=== PATIENT | female | born 1945 | race Caucasian/White ===

== ENCOUNTER 2020-12-17 14:03 | Inpatient (IN) | payer OTHER ==
[~2020-12-17] VITALS: Ht 167.6 cm; Wt 55.8 kg
[2020-12-17 14:45] LABS: HEMOGLOBIN 11.2 gm/dl (12.3-15.3); RED BLOOD COUNT 3.73 M/UL (4.00-5.10); WHITE BLOOD COUNT 5.2 K/UL (4.5-11.0)
[2020-12-17 15:15] LABS: BUN/CREATININE RATIO 25 (0-10)
[2020-12-17] MEDS ORDERED: OXYCODONE-ACET1 EACH PO (20:10)
[2020-12-17] MEDS ORDERED: HYDROCODON-ACE1 EAC2 PO (20:11)
[2020-12-17] MEDS ORDERED: GABAPENTIN600 MG PO (20:11)
[2020-12-17] MEDS ORDERED: DIAZEPAM2 MG PO (20:12)
[2020-12-17] MEDS ORDERED: PREDNISONE 50 M50 MG PO (20:12)
[2020-12-17] MEDS ORDERED: ROPINIROLE HCL2 MG PO (20:13)
[2020-12-17] MEDS ORDERED: LOSARTAN POTASS25 MG PO (20:13)
[2020-12-17] MEDS ORDERED: METOPROLOL TART25 MG PO (20:15)
[2020-12-17] MEDS ORDERED: SINGULAIR10 MG PO (20:15)
[2020-12-17] MEDS ORDERED: ADULT LOW DOSE81 MG PO (20:16)
[2020-12-17] MEDS ORDERED: ADVAIR HFA 230/1 INH INH (20:17)
[2020-12-17] MEDS ORDERED: IPRAT-ALBUT 0.5-3 ML INH (20:19)
[2020-12-17] MEDS ORDERED: SPIRIVA RESPIMAT4 GM INH (20:19)
[2020-12-18 06:25] LABS: HEMOGLOBIN 10.6 gm/dl (12.3-15.3); RED BLOOD COUNT 3.63 M/UL (4.00-5.10); WHITE BLOOD COUNT 4.1 K/UL (4.5-11.0)
[2020-12-18 18:44] LABS: HEMOGLOBIN 9.5 gm/dl (12.3-15.3)
[2020-12-18 18:49] LABS: RED BLOOD COUNT 3.24 M/UL (4.00-5.10); WHITE BLOOD COUNT 7.2 K/UL (4.5-11.0)
[2020-12-19 05:51] LABS: HEMOGLOBIN 9.5 gm/dl (12.3-15.3); RED BLOOD COUNT 3.18 M/UL (4.00-5.10); WHITE BLOOD COUNT 5.7 K/UL (4.5-11.0)
[2020-12-20 06:49] LABS: HEMOGLOBIN 8.5 gm/dl (12.3-15.3); RED BLOOD COUNT 2.91 M/UL (4.00-5.10)
[2020-12-20 06:54] LABS: WHITE BLOOD COUNT 4.1 K/UL (4.5-11.0)
[2020-12-21 06:23] LABS: HEMOGLOBIN 8.2 gm/dl (12.3-15.3); RED BLOOD COUNT 2.79 M/UL (4.00-5.10); WHITE BLOOD COUNT 3.5 K/UL (4.5-11.0)
[2020-12-22 08:04] LABS: HEMOGLOBIN 7.2 gm/dl (12.3-15.3); WHITE BLOOD COUNT 3.7 K/UL (4.5-11.0)
[2020-12-22 08:14] LABS: RED BLOOD COUNT 2.49 M/UL (4.00-5.10)
--- NOTE | 2020-12-22 13:56 | NUR ---
spoken with dr. lincoln reported of patients temp. received order to give tylenol as ordered
[2020-12-22 19:53] LABS: HEMOGLOBIN 8.7 gm/dl (12.3-15.3); WHITE BLOOD COUNT 3.7 K/UL (4.5-11.0)
[2020-12-22 19:58] LABS: RED BLOOD COUNT 2.91 M/UL (4.00-5.10)
[2020-12-23 04:35] LABS: HEMOGLOBIN 9.1 gm/dl (12.3-15.3); WHITE BLOOD COUNT 3.6 K/UL (4.5-11.0)
[2020-12-23] MEDS ORDERED: ENOXAPARIN40 MG/0.4 SC (08:44)
--- NOTE | 2020-12-23 11:35 | NUR ---
informed dr. grimm of patient discharge today and acknowledged. verbalize ok for patient to go home.
--- NOTE | 2020-12-23 11:36 | NUR ---
report given to admitting nurse- nida of [facility].
--- NOTE | 2020-12-23 13:22 | NUR ---
daughter refused to wait for portable oxygen. stated we live close to hospital. informed of importance of oxygen with travel. verb understanding. patient agreeable with the daughter not to wait for portable oxygen
== END 2020-12-23 13:09 | disposition home health service (06) | DRG 470 ==
LOC: ER1 14:03 → CDU 17:13 → M/S 17:13
PROVIDERS: Internal Medicine; Nurse Practitioner; Orthopaedic Surgery; Physician Assistant; ADMIT Internal Medicine
PROC: 0SR90JA Replacement of Right Hip Joint with Synthetic Substitute, Uncemented, Open Approach (ICD-10-PCS; 2020-12-18)
PROC: B24BZZ4 Ultrasonography of Heart with Aorta, Transesophageal (ICD-10-PCS; 2020-12-18)
PROC: 30233N1 Transfusion of Nonautologous Red Blood Cells into Peripheral Vein, Percutaneous Approach (ICD-10-PCS; principal; 2020-12-22)
DX: T84.020A Dislocation of internal right hip prosthesis, initial encounter (principal); D62 Acute posthemorrhagic anemia; C34.90 Malignant neoplasm of unspecified part of unspecified bronchus or lung; N30.00 Acute cystitis without hematuria; Z20.822 Contact with and (suspected) exposure to COVID-19; J44.9 Chronic obstructive pulmonary disease, unspecified; I10 Essential (primary) hypertension; B96.5 Pseudomonas (aeruginosa) (mallei) (pseudomallei) as the cause of diseases classified elsewhere; W18.30XA Fall on same level, unspecified, initial encounter; I08.1 Rheumatic disorders of both mitral and tricuspid valves; M24.551 Contracture, right hip; Y83.8 Other surgical procedures as the cause of abnormal reaction of the patient, or of later complication, without mention of misadventure at the time of the procedure; Z96.0 Presence of urogenital implants; F17.210 Nicotine dependence, cigarettes, uncomplicated; Z79.82 Long term (current) use of aspirin; Z79.01 Long term (current) use of anticoagulants; Z85.3 Personal history of malignant neoplasm of breast; Z90.12 Acquired absence of left breast and nipple; Z96.82 Presence of neurostimulator; Z90.710 Acquired absence of both cervix and uterus; Z90.49 Acquired absence of other specified parts of digestive tract
CPT/HCPCS: ECHO; 36415; 36430; 71045; 71046; 72170; 73501; 73502; 80048; 80053; 81001; 82550; 82553; 83036; 83540; 83550; 83735; 83874; 83880; 84484; 85025; 85027; 85652; 86140; 86850; 86900; 86901; 86920; 87040; 87070; 87077; 87086; 87186; 87205; 93005; 93306; 94640; 94664; 94760; 97110; 97110-GP-CQ; 97116; 97116-GP-CQ; 97161; 97166; 97530; 97530-GP-CQ; 99285; A6212; C1713; C1776; J0690; J1100; J1650; J2001; J2270; J2370; J2405; J2543; J2795; J3010; J3370; J7040; J7050; J7120; P9016; P9045; U0002

== ENCOUNTER 2021-01-08 14:42 | Inpatient (IN) | payer OTHER ==
[~2021-01-08] VITALS: Ht 167.6 cm; Wt 55.8 kg
[~2021-01-08 14:42] MED LIST: ADULT LOW DOSE81 MG PO; ADVAIR HFA 230/1 INH INH; DIAZEPAM2 MG PO; ENOXAPARIN40 MG/0.4 SC; GABAPENTIN600 MG PO; HYDROCODON-ACE1 EAC2 PO; IPRAT-ALBUT 0.5-3 ML INH; LOSARTAN POTASS25 MG PO; METOPROLOL TART25 MG PO; OXYCODONE-ACET1 EACH PO; PREDNISONE 50 M50 MG PO; ROPINIROLE HCL2 MG PO; SINGULAIR10 MG PO; SPIRIVA RESPIMAT4 GM INH
[2021-01-08 15:27] LABS: RED BLOOD COUNT 2.63 M/UL (4.00-5.10)
[2021-01-08 15:59] LABS: BUN/CREATININE RATIO 17 (0-10)
--- NOTE | 2021-01-08 22:43 | NUR ---
CONTACTED DR DE LA TORRE REGARDING ER ORDER FOR PRBC'S NOT BEING COMPLETED. DR DE LA TORRE STATED TO HOLD ADMINISTERING PRBC'S UNTIL 01/09/21 DUE TO HER HGB LEVEL OF 8 AND NO ACTIVE BLEEDING AT THIS TIME. WILL DETERMINE IF THEY ARE NEEDED AFTER LAB RESULTS ON 01/09/21.
[2021-01-09 05:52] LABS: RED BLOOD COUNT 1.94 M/UL (4.00-5.10); WHITE BLOOD COUNT 4.1 K/UL (4.5-11.0)
[2021-01-09 05:53] LABS: HEMOGLOBIN 5.9 gm/dl (12.3-15.3)
--- NOTE | 2021-01-09 06:49 | NUR ---
CAT CALLED REPORT FROM ER STATED THAT PATIENT HGB WAS [address] ORDERED 2 UNITS PRBC'S. THE RBC'S WERE NOT GIVEN PRIOR TO PATIENT BEING TRANSFERED TO [facility]. I CONTACTED THE PEDIATRIC PHYSICAL THERAPIST REGARDING THE ER ORDER NOT BEING FULLFILLED. SHE INSTRUCTED ME TO CONTACT THE HOSPITALIST. I CONTACTED DR DE LA TORRE AND HE STATED WE WILL RECHECK AM LABS AND MAKE A DECISION. AM LABS CAME BACK WITH A CRITICAL HGB OF 5.9 DR DE LA TORRE WAS NOTIFIED AND THE VERBAL ORDER WAS GIVEN TO TRANFUSE 2 UNITS OF RBC'S. THE ORDER WAS THEN PUT INTO THE COMPUTER. TUBING HUNG, FLUIDS AND CONSENT SIGNED REPORT GIVEN TO DAY SHIFT.
--- NOTE | 2021-01-09 07:20 | NUR ---
After further review of patients ER orders the PRBC's were not given because the order was placed on hold. a repaet of the patients CBC was ordered to determine if previous draw may have been diluted.
[2021-01-09 07:34] LABS: RED BLOOD COUNT 1.95 M/UL (4.00-5.10); WHITE BLOOD COUNT 3.9 K/UL (4.5-11.0)
[2021-01-09 07:36] LABS: HEMOGLOBIN 5.7 gm/dl (12.3-15.3)
[2021-01-09 10:42] LABS: HEMOGLOBIN 8.5 gm/dl (12.3-15.3); RED BLOOD COUNT 2.79 M/UL (4.00-5.10); WHITE BLOOD COUNT 3.8 K/UL (4.5-11.0)
--- NOTE | 2021-01-09 10:44 | NUR ---
PATIENT ARRIVED TO FLOOR FROM PACU AT THIS TIME. ALERT, VERBAL. ORIENTED TO PERSON, PLACE, AND TIME. SURGERY VITALS STARTED. CORKSCREW TANK BANDAGE NOTED FROM BRIDGE OF HIPS TO PATIENT'S FOOT. IN TACT, CLEAN, AND DRY. WILL MONITOR. CALL [facility] IN [facility].
[2021-01-09 15:56] LABS: HEMOGLOBIN 9.4 gm/dl (12.3-15.3); WHITE BLOOD COUNT 4.4 K/UL (4.5-11.0)
[2021-01-09 15:58] LABS: RED BLOOD COUNT 3.16 M/UL (4.00-5.10)
[2021-01-10 07:14] LABS: HEMOGLOBIN 9.6 gm/dl (12.3-15.3); RED BLOOD COUNT 3.21 M/UL (4.00-5.10)
[2021-01-10 07:16] LABS: WHITE BLOOD COUNT 3.2 K/UL (4.5-11.0)
--- NOTE | 2021-01-11 01:15 | NUR ---
PATIENT APPEARED ANXIOUS, SOB AND DIAPHORATIC. AFTER ASSESSMENT THE PATIENTS VITALS WERE 202/110, 101, 80%, 26, BGL'S 164, LUNGS WERE WHEEZEING AND SOUNDED WET. I CONTACTED RT FOR TX AND I INCREASED HER O2 FROM 2L TO 4L NC AND CONTACTED DR DE LA TORRE. HE ORDERED STAT ABG'S, CHEST X RAY LASIX, NITRO PASTE AND BIPAP. THEN LACTIC ACID, CBC AND SAID CAN TRANSFER HER TO PCU. [phone].
[2021-01-11 02:40] LABS: BUN/CREATININE RATIO 33 (0-10)
--- NOTE | 2021-01-11 02:55 | NUR ---
0226 CONTACTED THE LAB REGARDING STATUS OF LACTIC ACID LEVELS. 0230 LAB RETURNED CALL WITH CRITICAL LEVEL OF 26. [address] DE LA TORRE WITH RECENT VITALS AND THE CRITICAL LACTIC LEVELS. PATIENT HAS STABALIZED AND IS RESTING COMFORTABLY WITH INCREASE IN URINE OUTPUT. PATIENT IS BREATHING EASIER. DR DE LA TORRE SAID SHE CAN STAY ON MED SURGE AND TO CANCEL THE TRANSFER TO PCU. WILL CONTINUE TO MONITOR AND ASSESS THE PATIENT.
[2021-01-11 09:58] LABS: HEMOGLOBIN 10.7 gm/dl (12.3-15.3); RED BLOOD COUNT 3.52 M/UL (4.00-5.10)
[2021-01-11 09:59] LABS: WHITE BLOOD COUNT 5.5 K/UL (4.5-11.0)
[2021-01-11 18:02] LABS: HEMOGLOBIN 9.8 gm/dl (12.3-15.3); RED BLOOD COUNT 3.33 M/UL (4.00-5.10)
[2021-01-12 07:30] LABS: HEMOGLOBIN 9.1 gm/dl (12.3-15.3); RED BLOOD COUNT 3.12 M/UL (4.00-5.10)
[2021-01-12 08:13] LABS: BUN/CREATININE RATIO 29 (0-10)
[2021-01-13 04:39] LABS: HEMOGLOBIN 9.1 gm/dl (12.3-15.3); RED BLOOD COUNT 3.06 M/UL (4.00-5.10)
--- NOTE | 2021-01-13 16:54 | NUR ---
patient up in chair at this time eating supper with no respiratory distress noted.
[2021-01-14 03:38] LABS: HEMOGLOBIN 9.6 gm/dl (12.3-15.3); RED BLOOD COUNT 3.24 M/UL (4.00-5.10); WHITE BLOOD COUNT 3.3 K/UL (4.5-11.0)
[2021-01-14 04:05] LABS: BUN/CREATININE RATIO 17 (0-10)
[2021-01-15 03:09] LABS: BUN/CREATININE RATIO 13 (0-10)
[2021-01-15] MEDS ORDERED: AMLODIPINE BESYL5 MG PO (14:17)
[2021-01-15] MEDS ORDERED: INVANZ 1 GM VIAL1 GM IV (14:17)
[2021-01-15] MEDS ORDERED: LOPRESSOR 50 MG50 MG PO (14:17)
[2021-01-15] MEDS ORDERED: ENOXAPARIN40 MG/0.4 SC (14:17)
[2021-01-15] MEDS ORDERED: OXYCODONE-ACET1 EACH PO (15:48)
== END 2021-01-15 14:18 | disposition home health service (06) | DRG 466 ==
LOC: ER1 14:42 → M/S 19:31 → ER1 19:35 → CDU 20:15 → M/S 20:15
PROVIDERS: Emergency Medicine; Internal Medicine; Nurse Practitioner Family; Orthopaedic Surgery; Physician Assistant; ADMIT Internal Medicine
PROC: 30233N1 Transfusion of Nonautologous Red Blood Cells into Peripheral Vein, Percutaneous Approach (ICD-10-PCS; 2021-01-08)
PROC: 0JCL0ZZ Extirpation of Matter from Right Upper Leg Subcutaneous Tissue and Fascia, Open Approach (ICD-10-PCS; 2021-01-09)
PROC: 0SUA09Z Supplement Right Hip Joint, Acetabular Surface with Liner, Open Approach (ICD-10-PCS; 2021-01-11)
PROC: 0SPR0JZ Removal of Synthetic Substitute from Right Hip Joint, Femoral Surface, Open Approach (ICD-10-PCS; principal; 2021-01-11 15:45)
PROC: 0SP909Z Removal of Liner from Right Hip Joint, Open Approach (ICD-10-PCS; principal; 2021-01-11 15:45)
PROC: 0SRR0JZ Replacement of Right Hip Joint, Femoral Surface with Synthetic Substitute, Open Approach (ICD-10-PCS; principal; 2021-01-11 15:45)
DX: T84.51XA Infection and inflammatory reaction due to internal right hip prosthesis, initial encounter (principal); A41.89 Other specified sepsis; Z20.822 Contact with and (suspected) exposure to COVID-19; J96.21 Acute and chronic respiratory failure with hypoxia; R04.2 Hemoptysis; L76.32 Postprocedural hematoma of skin and subcutaneous tissue following other procedure; D61.818 Other pancytopenia; N39.0 Urinary tract infection, site not specified; D84.9 Immunodeficiency, unspecified; J44.1 Chronic obstructive pulmonary disease with (acute) exacerbation; D62 Acute posthemorrhagic anemia; E87.2 Acidosis; F17.210 Nicotine dependence, cigarettes, uncomplicated; G25.0 Essential tremor; K21.9 Gastro-esophageal reflux disease without esophagitis; Y83.8 Other surgical procedures as the cause of abnormal reaction of the patient, or of later complication, without mention of misadventure at the time of the procedure; D50.9 Iron deficiency anemia, unspecified; B96.5 Pseudomonas (aeruginosa) (mallei) (pseudomallei) as the cause of diseases classified elsewhere; I25.10 Atherosclerotic heart disease of native coronary artery without angina pectoris; I10 Essential (primary) hypertension; Z87.440 Personal history of urinary (tract) infections; Z85.3 Personal history of malignant neoplasm of breast; Z85.118 Personal history of other malignant neoplasm of bronchus and lung; Z79.82 Long term (current) use of aspirin; Z99.3 Dependence on wheelchair; Z90.12 Acquired absence of left breast and nipple; Z96.82 Presence of neurostimulator; Z90.710 Acquired absence of both cervix and uterus; Z90.49 Acquired absence of other specified parts of digestive tract; Z95.5 Presence of coronary angioplasty implant and graft
CPT/HCPCS: 36415; 36600; 71045; 71046; 72170; 72193; 73501; 80048; 80053; 80202; 81001; 82550; 82553; 82803; 82962; 83540; 83550; 83605; 83874; 84484; 85025; 85027; 85610; 85652; 85730; 86140; 86850; 86900; 86901; 86920; 87040; 87070; 87077; 87086; 87186; 87205; 93005; 93971; 94640; 94660; 94664; 94760; 96374; 96375; 97116-GP-CQ; 97162; 97166; 97530; 97530-GP-CQ; 97535; 99285; C1713; C1776; J0360; J0690; J0692; J1100; J1335; J1650; J1756; J1940; J2001; J2185; J2250; J2270; J2405; J2704; J2710; J2795; J2920; J3010; J3370; J7030; J7040; J7050; J7070; J7120; P9016; Q9967; U0002

== ENCOUNTER → 2021-03-10 | Outpatient (CLI) | payer OTHER ==
[~2021-03-10] MED LIST changes: +AMLODIPINE BESYL5 MG PO; +INVANZ 1 GM VIAL1 GM IV; +LOPRESSOR 50 MG50 MG PO
== END ==
LOC: OPSV 12:00
DX: T84.51XA Infection and inflammatory reaction due to internal right hip prosthesis, initial encounter (principal)
CPT/HCPCS: G0463